=== PATIENT | female | born 1940 | race Asian ===

== ENCOUNTER 2016-12-22 02:28 | Inpatient (IN) | payer OTHER ==
[~2016-12-22] VITALS: Ht 157.5 cm; Wt 53.5 kg
[2016-12-22 03:40] LABS: BASOPHIL % 0.9 % (0-2); PLATELET COUNT 134 x10^3mcL (130-400); RED CELL DISTRIBUTION WIDTH 14.3 % (11.5-14.5)
[2016-12-22 03:49] LABS: CALCIUM 8.4 mg/dL (8.5-10.1); CARBON DIOXIDE 27.6 mmol/L (21-32); CHLORIDE SERUM 109 mmol/L (98-107); GLUCOSE SERUM 106 mg/dL (74-106); POTASSIUM SERUM 3.9 mmol/L (3.5-5.1); SODIUM SERUM 142 mmol/L (136-145)
[2016-12-22 03:53] LABS: ALKALINE PHOSPHATASE 48 U/L (46-116); ALT/SGPT 96 U/L (14-59); AST/SGOT 67 U/L (15-37); BILIRUBIN TOTAL 0.8 mg/dL (0.20-1.00); TOTAL PROTEIN, SERUM 6.5 g/dL (6.4-8.2)
[2016-12-22 04:01] LABS: ALBUMIN 3.2 g/dL (3.4-5.0)
[2016-12-22] MEDS ORDERED: COZAAR50 M1 PO (06:01)
[2016-12-22] MEDS ORDERED: COREG CR20 MG PO (06:02)
[2016-12-22] MEDS ORDERED: FOL1 PO (06:02)
[2016-12-22] MEDS ORDERED: ELIQUIS5 MG PO (06:02)
[2016-12-22 06:25] LABS: PHOSPHOROUS 3.6 mg/dL (2.5-4.9)
[2016-12-22 06:33] LABS: T3 TOTAL 0.83 ng/mL
[2016-12-22 06:35] LABS: FREE T4 1.28 ng/dL (0.76-1.46); FREE THYROXINE INDEX 4.1 ug/dL (1.4-4.5)
[2016-12-22 06:45] LABS: CHOLESTEROL/HDL RATIO 2.2
[2016-12-22 08:00] VITALS: BP 176/85
[2016-12-22] MEDS ORDERED: AMIODARONE HCL200 MG PO (09:56)
[2016-12-22 10:49] VITALS: BP 130/84
[2016-12-22 10:54] VITALS: BP 129/78
[2016-12-22 13:48] VITALS: BP 102/60
== END 2016-12-22 14:29 | disposition left against medical advice (07) | DRG 291 ==
LOC: ED 02:28 → DU 05:46
PROVIDERS: Emergency Medicine; ADMIT Family Medicine
DX: I11.0 Hypertensive heart disease with heart failure (principal); N17.0 Acute kidney failure with tubular necrosis; I50.43 Acute on chronic combined systolic (congestive) and diastolic (congestive) heart failure; I48.91 Unspecified atrial fibrillation; I16.0 Hypertensive urgency; R74.0 Nonspecific elevation of levels of transaminase and lactic acid dehydrogenase [LDH]; Z68.21 Body mass index [BMI] 21.0-21.9, adult; Z87.891 Personal history of nicotine dependence; Z79.01 Long term (current) use of anticoagulants
CPT/HCPCS: 83880; 84439; J1940; J7620; J7633; Q0092

== ENCOUNTER 2017-02-04 09:31 | Inpatient (IN) | payer OTHER ==
[~2017-02-04] VITALS: Ht 157.5 cm; Wt 53.5 kg
[~2017-02-04 09:31] MED LIST: AMIODARONE HCL200 MG PO; COREG CR20 MG PO; COZAAR50 M1 PO; ELIQUIS5 MG PO; FOL1 PO
[2017-02-04] MEDS ORDERED: COUMADIN2 MG PO (09:59)
[2017-02-04 10:16] LABS: BASOPHIL % 0.1 % (0-2); PLATELET COUNT 155 x10^3mcL (130-400)
[2017-02-04 10:35] LABS: RED CELL DISTRIBUTION WIDTH 19.1 % (11.5-14.5)
[2017-02-04 10:55] LABS: CALCIUM 8.5 mg/dL (8.5-10.1); CARBON DIOXIDE 28.9 mmol/L (21-32); CHLORIDE SERUM 104 mmol/L (98-107); CREATININE SERUM 1.2 mg/dL (0.6-1.0); GLUCOSE SERUM 142 mg/dL (74-106); POTASSIUM SERUM 4.9 mmol/L (3.5-5.1); SODIUM SERUM 139 mmol/L (136-145)
[2017-02-04 10:59] LABS: ALBUMIN 3.5 g/dL (3.4-5.0); ALKALINE PHOSPHATASE 58 U/L (46-116); ALT/SGPT 41 U/L (14-59); AST/SGOT 71 U/L (15-37); BILIRUBIN TOTAL 0.7 mg/dL (0.20-1.00); CHOLESTEROL 156 mg/dL (<200); HDL CHOLESTEROL 62 mg/dL (40-60); PHOSPHOROUS 5.1 mg/dL (2.5-4.9); TOTAL PROTEIN, SERUM 6.7 g/dL (6.4-8.2); URIC ACID 5.1 mg/dL (2.6-6.0)
[2017-02-04 13:09] LABS: T3 TOTAL 0.75 ng/mL
[2017-02-04 13:27] LABS: CHOLESTEROL/HDL RATIO 2.7
[2017-02-04 13:36] VITALS: BP 106/46
[2017-02-04 13:37] LABS: FREE T4 1.66 ng/dL (0.76-1.46); FREE THYROXINE INDEX 4.6 ug/dL (1.4-4.5)
[2017-02-04 17:22] VITALS: BP 120/43
[2017-02-04 20:37] VITALS: BP 120/47
[2017-02-05 05:42] VITALS: BP 146/64
[2017-02-05 06:17] LABS: ALKALINE PHOSPHATASE 50 U/L (46-116); ALT/SGPT 47 U/L (14-59); AST/SGOT 48 U/L (15-37); BILIRUBIN TOTAL 0.5 mg/dL (0.20-1.00); CALCIUM 8.4 mg/dL (8.5-10.1); CARBON DIOXIDE 23.7 mmol/L (21-32); CHLORIDE SERUM 105 mmol/L (98-107); CREATININE SERUM 1.8 mg/dL (0.6-1.0); GLUCOSE SERUM 86 mg/dL (74-106); POTASSIUM SERUM 4.7 mmol/L (3.5-5.1); SODIUM SERUM 139 mmol/L (136-145); TOTAL PROTEIN, SERUM 6.2 g/dL (6.4-8.2)
[2017-02-05 06:24] LABS: ALBUMIN 3.1 g/dL (3.4-5.0)
[2017-02-05 06:49] LABS: BASOPHIL % 0.4 % (0-2)
[2017-02-05 07:02] LABS: PLATELET COUNT 119 x10^3mcL (130-400)
[2017-02-05 07:45] LABS: UA SPECIFIC GRAVITY <=1.005 (1.005-1.035); microscopic required? YES; urine erythrocyte TRACE (NEGATIVE)
[2017-02-05 08:44] VITALS: BP 149/51
[2017-02-05 08:48] VITALS: BP 149/51
[2017-02-05 09:57] LABS: AMPHETAMINE QUAL UR NONE DETECTED (NEG <=1000)
[2017-02-05 10:48] VITALS: BP 149/51
== END 2017-02-05 11:15 | disposition home or self-care (01) | DRG 308 ==
LOC: ED 09:31 → DU 11:38
PROVIDERS: Emergency Medicine; ADMIT Family Medicine
DX: R00.1 Bradycardia, unspecified (principal); N17.0 Acute kidney failure with tubular necrosis; T44.7X5A Adverse effect of beta-adrenoreceptor antagonists, initial encounter; T46.2X5A Adverse effect of other antidysrhythmic drugs, initial encounter; I95.9 Hypotension, unspecified; E83.39 Other disorders of phosphorus metabolism; D53.9 Nutritional anemia, unspecified; R74.0 Nonspecific elevation of levels of transaminase and lactic acid dehydrogenase [LDH]; E05.80 Other thyrotoxicosis without thyrotoxic crisis or storm; Z95.2 Presence of prosthetic heart valve; Z79.01 Long term (current) use of anticoagulants; Y92.009 Unspecified place in unspecified non-institutional (private) residence as the place of occurrence of the external cause
CPT/HCPCS: 76770; 83880; 84439; G0480; J0461; J1610; J2405; J7030; J7050; Q0092